=== PATIENT | male | born 1985 | race Caucasian/White ===

== ENCOUNTER 2018-01-03 19:15 | Emergency (ER) | payer SELFPAY ==
[~2018-01-03] VITALS: Ht 177.8 cm; Wt 65.8 kg
[~2018-01-03 19:15] MED LIST: NORCO 5-325 TA1 EACH PO
== END 2018-01-03 21:24 | disposition home or self-care (01) ==
LOC: ED 19:15
PROC: 0HQ0XZZ Repair Scalp Skin, External Approach (ICD-10-PCS; principal; 2018-01-03)
DX: S01.01XA Laceration without foreign body of scalp, initial encounter (principal); S16.1XXA Strain of muscle, fascia and tendon at neck level, initial encounter; F07.81 Postconcussional syndrome; F17.200 Nicotine dependence, unspecified, uncomplicated; Z88.2 Allergy status to sulfonamides; Z88.0 Allergy status to penicillin; Z23 Encounter for immunization; V19.9XXA Pedal cyclist (driver) (passenger) injured in unspecified traffic accident, initial encounter
CPT/HCPCS: 12002; 70450; 72125; 90471; 90715; 99284

== ENCOUNTER 2021-07-15 18:08 | Emergency (ER) | payer OTHER ==
[~2021-07-15] VITALS: Ht 177.8 cm; Wt 81.6 kg
[~2021-07-15 18:08] MED LIST changes: +DOXYCYCLINE HY100 MG PO; +HYDROCODON-ACE1 EA10 PO
[2021-07-15] MEDS ORDERED: CLINDAMYCIN HC300 MG PO (19:58)
[2021-07-15] MEDS ORDERED: HYDROCODON-ACE1 EA10 PO (19:58)
== END 2021-07-15 21:12 | disposition home or self-care (01) ==
LOC: ED 18:08
DX: J02.9 Acute pharyngitis, unspecified (principal); F17.200 Nicotine dependence, unspecified, uncomplicated; Z88.2 Allergy status to sulfonamides; Z88.0 Allergy status to penicillin; Z79.899 Other long term (current) drug therapy
CPT/HCPCS: 36415; 85025; 87081; 87880; 96365; 96375; 99283-25; J0696; J1100; J1170; J2405; J7030